=== PATIENT | male | born 2000 | race Caucasian/White ===

== ENCOUNTER 2022-11-26 00:06 | Emergency (ER) | payer BC, SELFPAY ==
[2022-11-26] VITALS (7 sets, daily range): BP systolic 103–123; BP diastolic 60–71; PULSE 86–108; RESP 16–18; TEMP 36.7; O2SAT 98–99; BMI 29.4
--- NOTE | 2022-11-26 00:26 | ED_ITS ---
HPI - General Adult General Time Seen by Provider: 00:27 Date Seen: 11/26/22 Chief complaint: Nausea/Vomiting Stated complaint: vomiting Time Seen by Provider: 11/26/22 00:13 Source: patient Mode of arrival: ambulatory Limitations: no limitations History of Present Illness HPI narrative: 22-year-old male who comes in today with vomiting since yesterday. No diarrhea. Denies abdominal pain. No fever, no cough runny nose or sore throat. Has not taken anything for this. Does have some lightheadedness. Denies chest pain the. Last alcohol use was about 3 days ago, does not drink alcohol daily by his report. Denies smoking. Related Data Home Medications Medication Instructions Recorded Confirmed No Known Home Medications 11/26/22 11/26/22 Allergies Allergy/AdvReac Type Severity Reaction Status Date / Time No Known Drug Allergies Allergy Verified 11/26/22 00:23 Review of Systems Status of ROS: Reports: 10 or more systems reviewed and unremarkable except as noted in History and below [facility] Medical History (Updated 11/26/22 @ 01:08 by Roosevelt Pierre MD) No significant past medical history Surgical History (Updated 11/26/22 @ 00:26 by Reji Khan RN) No significant past surgical history Social History Smoking Status: Never smoker Second hand tobacco smoke exposure: No How often do you have a drink containing alcohol: monthly or less AUDIT-C Alcohol total score: 1 Non-prescribed substance use: denies use Exam Narrative: Exam Narrative: General: Well-developed and well-nourished, no acute distress Head: Atraumatic and normocephalic Eyes: Pupils are equal reactive, extraocular motions intact, conjunctiva clear ENT: External nose and ears are normal, posterior pharynx without erythema or exudate Neck: No midline cervical tenderness, full spontaneous range of motion the neck, trachea midline, no adenopathy Heart: Regular rate and rhythm no murmurs or thrills Lungs: Clear to auscultation bilaterally without wheezes or crackles Abdomen: Soft, mild upper abdominal tenderness, nondistended with active bowel sounds Musculoskeletal: No tenderness, deformity, or edema Neurologic: Awake, alert, and oriented x3, no gross focal neurologic deficits, cranial nerves intact as tested Psych: Mood and affect are appropriate Skin: No rashes Const: Vital Signs, click to edit/add: Vital Signs - 24 hr 04/17/23 00:22 11/26/22 00:30 11/26/22 00:43 Temperature 98.0 F Pulse Rate 100 Pulse Rate [Right Pulse Oximeter] 108 H Respiratory Rate 18 16 Blood Pressure 123/67 Blood Pressure [Ri ght Upper Arm] 103/60 Pulse Oximetry 99 98 98 Oxygen Delivery Me thod Room Air Course Course Hospital Course: Patient seen examined, prior records are reviewed. Patient presents with vomiting today. On exam he does have some mild upper abdominal tenderness. No hematemesis. On arrival he is noted to be tachycardic and hypotensive. Labs ordered along with IV fluids and Zofran. Reevaluation(s) Reevaluation #1: Labs independently interpreted by me demonstrate reassuring basic panel, normal lipase, normal hepatic function panel. White blood cell count is elevated, hemoglobin is stable. Blood pressure improved after fluids in heart rate is improving. Additional IV fluids will be given and plan to discharge with medication help with nausea. Time: 01:06 Vital Signs Vital signs: Initial Vital Signs Temperature 98.0 F 11/26/22 00:22 Temperature Source Temporal Artery Scan 11/26/22 00:22 Pulse Rate 108 H 11/26/22 00:22 Respiratory Rate 18 11/26/22 00:22 Blood Pressure 103/60 11/26/22 00:22 Blood Pressure Mean 74 11/26/22 00:22 Blood Pressure Position Sitting 11/26/22 00:22 Pulse Oximetry 99 11/26/22 00:22 Oxygen Delivery Method Room Air 11/26/22 00:22 Vital Signs Temperature 98.0 F 11/26/22 00:22 Pulse Rate 108 H 11/26/22 00:22 Respiratory Rate 18 11/26/22 00:22 Blood Pressure 103/60 11/26/22 00:22 Pulse Oximetry 99 11/26/22 00:22 Oxygen Delivery Method Room Air 11/26/22 00:22 Temperature 98.0 F 11/26/22 00:22 Pulse Rate 100 11/26/22 00:43 Respiratory Rate 16 11/26/22 00:43 Blood Pressure 123/67 11/26/22 00:43 Pulse Oximetry 98 11/26/22 00:43 Oxygen Delivery Method Room Air 11/26/22 00:22 Medical Decision Making Medical Records Medical records reviewed: Yes I reviewed the patient's medical records Lab Data Lab results reviewed: Yes I reviewed the patient's lab results Labs: Lab Results 11/26/22 Range/Units 00:30 WBC 12.50 H (4.50-11.00) K/uL RBC 5.54 (4.30-5.90) m/uL Hgb 16.1 (13.5-17.5) gm/dL Hct 46.7 (37.0-53.0) % MCV 84 (80-100) fL MCH 29 (26-34) pg MCHC 35 (32-36) gm/dL RDW Coeff of Tristin 12.1 (11.5-15.5) % Plt Count 327 (140-440) K/uL Neut % (Auto) 90.0 H (42.0-72.0) % Lymph % (Auto) 3.4 L (20-44) % [place] % (Auto) 4.6 (0.0-11.0) % Eos % (Auto) 1.4 (0.0-7.0) % Baso % (Auto) 0.1 (0.0-3.0) % Neut # (Auto) 11.30 H (1.7-7.0) K/uL Lymph # (Auto) 0.40 L (0.90-2.90) K/uL [place] # (Auto) 0.60 (0.00-0.90) K/UL Eos # (Auto) 0.20 (0.00-0.50) K/uL Baso # (Auto) 0.00 (0.00-0.30) K/uL Sodium 139 (135-149) mmol/L Potassium 4.3 (3.6-5.1) mmol/L Chloride 106 (96-114) mmol/L Carbon Dioxide 25 (20-32) mmol/L BUN 18 (5-24) mg/dL Creatinine 1.0 (0.5-1.5) mg/dL Estimated Creat Clear 120.65 Estimated GFR 110 ml/min Glucose 137 H (60-115) mg/dL Calcium 8.7 (8.4-10.6) mg/dL Magnesium 2.0 (1.5-2.6) mg/dL Total Bilirubin 1.0 (0.1-1.5) mg/dL Direct Bilirubin 0.3 (0.0-0.5) mg/dL AST 29 (12-35) U/L ALT 28 (4-50) U/L Alkaline Phosphatase 78 (40-150) U/L Total Protein 7.8 (6.0-8.3) g/dL Albumin 4.6 (3.3-5.0) g/dL Lipase 49 (23-300) U/L Discharge Plan Discharge Clinical Impression: Nausea and vomiting, Dehydration Patient Disposition: Home, Self-Care Condition: Improved Instructions: Acute Nausea and Vomiting (DC) Activity Level: Activity as Tolerated Discharge Diet: Regular Diet Detail: Liquid diet for 24 hours then advance as tolerated Prescriptions: No Action No Known Home Medications Follow Up/Referrals: Provider,Not a Local [Primary Care Provider] - Stand Alone Forms: [employer] Info Instructions
[2022-11-26] MEDS: 0.9 % SODIUM CHLORIDE 1000 ml 1,000 ML IV (00:30)
[2022-11-26] MEDS: ONDANSETRON 2 MG/ML inj 4 MG IVP (00:31)
[2022-11-26 00:47] LABS: Basophils Percent Auto 0.1 % (0.0-3.0); Eosinophils Percent Auto 1.4 % (0.0-7.0); Hematocrit 46.7 % (37.0-53.0); Hemoglobin* 16.1 gm/dL (13.5-17.5); Immature Granulocytes Pct Auto 0.5 %; Lymphocytes Percent Auto 3.4 % (20-44); Mean Corpuscular HGB Conc 35 gm/dL (32-36); Mean Corpuscular Hemoglobin 29 pg (26-34); Mean Corpuscular Volume 84 fL (80-100); Monocytes Percent Auto 4.6 % (0.0-11.0); Platelet Count* 327 K/uL (140-440); RDW Coefficient of Variation % 12.1 % (11.5-15.5); Red Blood Count 5.54 m/uL (4.30-5.90)
[2022-11-26] MEDS: PANTOPRAZOLE SODIUM 40 MG INJ IVP (00:47)
[2022-11-26 00:49] LABS: Slide Review Reflex No
[2022-11-26 01:00] LABS: Albumin* 4.6 g/dL (3.3-5.0); Chloride* 106 mmol/L (96-114)
[2022-11-26 01:01] LABS: Potassium* 4.3 mmol/L (3.6-5.1); Sodium* 139 mmol/L (135-149)
[2022-11-26 01:03] LABS: Aspartate Amino Transferase* 29 U/L (12-35); Bilirubin Direct* 0.3 mg/dL (0.0-0.5); Blood Urea Nitrogen* 18 mg/dL (5-24); Carbon Dioxide* 25 mmol/L (20-32); Est. Creatinine Clearance* 120.65; Estimated Glomerular Filt Rate 110 ml/min; Total Protein* 7.8 g/dL (6.0-8.3)
[2022-11-26 01:04] LABS: Alanine Aminotransferase* 28 U/L (4-50); Alkaline Phosphatase* 78 U/L (40-150); Calcium* 8.7 mg/dL (8.4-10.6); Glucose* 137 mg/dL (60-115); Lipase* 49 U/L (23-300)
[2022-11-26] MEDS: 0.9 % SODIUM CHLORIDE 1000 ml 1,000 ML 6000 ML IV (01:19)
== END 2022-11-26 01:59 | disposition home or self-care (01) ==
PROVIDERS: Emergency Provider Family Medicine
DX: R11.2 Nausea with vomiting, unspecified (principal); E86.0 Dehydration
CPT/HCPCS: 36415; 80048; 80076; 83690; 83735; 85025; 94761; 96374; 96375; 99283; 99284; C9113; J2405; J7030

== ENCOUNTER 2024-04-09 19:11 | Outpatient (CLI) | payer OTHER, SELFPAY | END 2024-04-09 19:12 | disposition home or self-care (01) | LOC: AMB 04-12 01:03 | PROVIDERS: Visit Provider Emergency Medicine Emergency Medical Services | DX: S09.93XA Unspecified injury of face, initial encounter (principal); V47.5XXA Car driver injured in collision with fixed or stationary object in traffic accident, initial encounter; Y92.410 Unspecified street and highway as the place of occurrence of the external cause | CPT/HCPCS: A0425; A0429 ==

== ENCOUNTER 2024-04-09 20:03 | Emergency (ER) | payer SELFPAY ==
[2024-04-09 20:08] VITALS: BP 127/71; PULSE 64; RESP 16; TEMP 36.6; O2SAT 97; BMI 28.7
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
== END 2024-04-09 21:08 | disposition home or self-care (01) ==
LOC: ED 21:06
PROVIDERS: Emergency Provider Emergency Medicine Emergency Medical Services
DX: S00.33XA Contusion of nose, initial encounter (principal); V47.5XXA Car driver injured in collision with fixed or stationary object in traffic accident, initial encounter
CPT/HCPCS: 99283; 99284

== ENCOUNTER 2024-06-05 19:03 | Emergency (ER) | payer OTHER, SELFPAY ==
[2024-06-05 19:17] VITALS: BP 115/70; PULSE 95; RESP 16; TEMP 36.6; O2SAT 98; BMI 25.8
[2024-06-05 20:10] LABS: PCR FLU A Negative PCR FLU A (Negative); PCR FLU B Negative PCR FLU B (Negative); PCR RSV Negative PCR RSV (Negative); SARS PCR* Negative SARS-CoV-2 (Negative)
--- NOTE | 2024-06-05 20:54 | ED_ITS ---
HPI - General Adult General Date Seen: 06/05/24 Chief complaint: Nausea/Vomiting Stated complaint: Nausea, fever Time Seen by Provider: 06/05/24 20:54 History of Present Illness HPI narrative: 23 yo generally healthy M presenting to the ER today with an illness that began this morning. Throughout the day he has had nausea with several episodes of nonbilious, nonbloody emesis. Along with that he has had multiple episodes of watery diarrhea. He has also had intermittent abdominal cramping and intermittent fevers and chills. He has been trying to stay hydrated at home but just keeps throwing up whenever he tries to drink anything. He has not much solid food today because he just has no appetite. 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 No recent travel. No camping. No known sick contacts. He was at work, [employer], today when his symptoms started and he had to go home early from work because he was just too sick. This afternoon he is developing a little bit of weakness and feeling tired and a little bit lightheaded. He is feeling dehydrated. Related Data Home Medications ?Medication ?Instructions ?Recorded ?Confirmed No Known Home Medications 06/05/24 06/05/24 Allergies Allergy/AdvReac Type Severity Reaction Status Date / Time No Known Drug Allergies Allergy Verified 04/10/24 13:18 [facility] Medical History (Updated 06/05/24 @ 22:19 by Lamberto Tan MD) No significant past medical history Surgical History (Updated 11/26/22 @ 00:26 by Reji Khan RN) No significant past surgical history Social History Smoking Status: Never smoker Second hand tobacco smoke exposure: No How often do you have a drink containing alcohol: monthly or less AUDIT-C Alcohol total score: 1 Non-prescribed substance use: denies use Exam Narrative: Exam Narrative: Constitutional: Appears well-developed and well-nourished. Alert. Conversant. Non toxic. HENT: Head: Atraumatic. Nose: Nose normal. Mouth/Throat: Oral mucosa is clear but dry. Not desiccated or cracked. no trismus. Pharynx normal. Tonsils symmetric. No tonsillar enlargement, erythema, or exudate. Eyes: Conjunctivae normal. EOM normal. Pupils equal, round, and reactive to light. No scleral icterus. Neck: Normal range of motion. Neck supple. No tracheal deviation present. Cardiovascular: Normal rate, regular rhythm. No gallop. No friction rub. No murmur heard. Symmetric radial artery pulses Pulmonary/Chest: Effort normal. No stridor. No respiratory distress. No wheezes. No rales. No rhonchi . No tenderness. Abdominal: Soft. Bowel sounds normal. No distension. No mass. Mild left lower quadrant tenderness. No right lower quadrant tenderness. No rebound. No guarding. No CVA tenderness. Musculoskeletal: RUE: Normal range of motion. No tenderness. No deformity LUE: Normal range of motion. No tenderness. No deformity RLE: Normal range of motion. No edema. No tenderness. No deformity LLE: Normal range of motion. No edema. No tenderness. No deformity Neurological: Alert and oriented to person, place, and time. Normal strength. CN II-VII intact. No sensory deficit. GCS eye subscore is 4. GCS verbal subscore is 5. GCS motor subscore is 6. Normal coordination Skin: Skin is warm and dry. No rash noted. No pallor. Normal capillary refill. Psychiatric: Normal mood. Normal affect. Const: Vital Signs, click to edit/add: Vital Signs - 24 hr 06/05/24 19:17 Temperature 98 F Pulse Rate [Pulse Oximeter] 95 Respiratory Rate 16 Blood Pressure [Ri ght Upper Arm] 115/70 Pulse Oximetry 98 Oxygen Delivery Me thod Room Air Course Course ED Course: Recheck-no further vomiting after Zofran. Has tolerated p.o. liquids well. Still having some abdominal pain. Repeat exam reveals still mild left lower quadrant tenderness. No right lower quadrant tenderness. Overall feeling better. Motrin ordered for his abdominal pain. He feels like he will be able to keep fluids down is willing to try a plan for discharge with Zofran at home. Vital Signs Vital signs: Initial Vital Signs Temperature 98 F 06/05/24 19:17 Temperature Source Temporal Artery Scan 06/05/24 19:17 Pulse Rate 95 06/05/24 19:17 Respiratory Rate 16 06/05/24 19:17 Blood Pressure 115/70 06/05/24 19:17 Blood Pressure Mean 85 06/05/24 19:17 Blood Pressure Position Sitting 06/05/24 19:17 Pulse Oximetry 98 06/05/24 19:17 Oxygen Delivery Method Room Air 06/05/24 19:17 Vital Signs Temperature 98 F 06/05/24 19:17 Pulse Rate 95 06/05/24 19:17 Respiratory Rate 16 06/05/24 19:17 Blood Pressure 115/70 06/05/24 19:17 Pulse Oximetry 98 06/05/24 19:17 Oxygen Delivery Method Room Air 06/05/24 19:17 Temperature 98 F 06/05/24 19:17 Pulse Rate 95 06/05/24 19:17 Respiratory Rate 16 06/05/24 19:17 Blood Pressure 115/70 06/05/24 19:17 Pulse Oximetry 98 06/05/24 19:17 Oxygen Delivery Method Room Air 06/05/24 19:17 Medications Administered Medications: Discontinued Medications Generic Name Dose Route Start Last Admin Trade Name Freq PRN Reason Stop Dose Admin Ondansetron HCl 4 mg 06/05/24 20:56 06/05/24 21:41 Ondansetron Odt 4 Mg Tab PO 06/05/24 20:57 4 mg ONCE ONE Administration Medical Decision Making MDM Narrative Medical decision making narrative: This patient presents with vomiting and diarrhea []. The patient's symptoms and exam could be consistent with a viral GI infection. There is no high fever, severe pain, bilious or bloody emesis, blood or mucous in the stool, severe abdominal pain, or other concerning signs for a bacterial infection. No recent travel or high risk exposure for baceraial pathogen. No recent antibiotics or risk factors for C. diff. I don't see any evidence for appendicitis, bowel obstruction, abscess, bowel perforation, or other surgical emergency. After meds given the patient is feeling better. At this point, the patient is non-septic appearing and well hydrated.I think the patient can be managed as an outpatient. We have discussed oral rehydration strategies. They understand and can perform the needed interventions at home. I have provided a prescription for antiemetics to facilitate oral hydration ([facility] prescription for Zofran ODT). We have discussed the signs and symptoms of worsening dehydration. They understand the need for immediate reevaluation if any of these symptoms occur. They are also directed to obtain close outpatient follow up within 24-36 hours.. Lab Data Labs: Lab Results 06/05/24 Range/Units 19:24 SARS-CoV-2 (PCR) Negative SARS-CoV-2 (Negative) Influenza Type A (PCR) Negative PCR FLU A (Negative) Influenza Type B (PCR) Negative PCR FLU B (Negative) RSV (PCR) Negative PCR RSV (Negative) Discharge Plan Discharge Clinical Impression: Abdominal pain, vomiting, and diarrhea Patient Disposition: Home, Self-Care Condition: Stable Instructions: Acute Nausea and Vomiting (DC) Additional Instructions: As we discussed, please use the Zofran if needed for notion vomiting. Use ibuprofen or Tylenol if you are having fever or if you are having abdominal pains. Do your best to push fluids to stay hydrated. At easily digestible solid foods as needed. Right now we suspect that your illness is probably due to a viral GI illness. This typically takes 24-48 hours to get better. Expected to be substantially improved within the next 24 hours or so. If you are not improving after 24 hours, or if you have any worsening symptoms (for instance high fever, bloody or mucousy stool, uncontrollable vomiting, worsening weakness, bloody vomit) or if you have any other concerns, please come back to the emergency room right away.. Prescriptions: No Action No Known Home Medications Follow Up/Referrals: Provider,Not a Local [Primary Care Provider] - Stand Alone Forms: [employer] Info Instructions
[2024-06-05] MEDS: ONDANSETRON ODT 4 MG TAB PO (21:41)
[2024-06-05 22:32] VITALS: BP 121/61; PULSE 90; RESP 16; TEMP 38.2; O2SAT 98
== END 2024-06-05 22:47 | disposition home or self-care (01) ==
PROVIDERS: Family Medicine; Emergency Provider Emergency Medicine
DX: R11.2 Nausea with vomiting, unspecified (principal); R19.7 Diarrhea, unspecified
CPT/HCPCS: 87631; 99282; 99283; A9270